=== PATIENT | male | born 1985 | race Caucasian/White ===

== ENCOUNTER 2016-07-04 19:21 | Emergency (ER) ==
[2016-07-04 19:26] VITALS: BP 159/91; TEMP 97.1; BMI 49.4
--- NOTE | 2016-07-04 19:40 | ED.PDOC ---
General ED Provider: Dr. HANY MELARA Chief Complaint: Tooth Problem Stated Complaint: Patient reports dental pain on the left lower molar and left incisor. Took Tylenol but has not helped. Time Seen by Physician: 19:37 Mode of Arrival: Walk-In Information Source: Patient Exam Limitations: No limitations Primary Care Provider: GEOVANY CALDERON Nursing and Triage Documentation Reviewed and Agree: Yes EENT Complaint Exam - Dental/Oral Complaint/Exam Mechanism of Injury: No known trauma Onset/Duration: 2 days Symptoms Are: Still present Timing: Constant Initial Severity: Moderate Current Severity: Severe Location: Left lower molar and left front teeth Character: Reports: Aching, Throbbing Aggravating: Reports: Heat, Cold, Chewing Alleviating: Reports: None Associated Signs and Symptoms: Reports: Foul odor, Foul taste in mouth Related History: Reports: Similar episode Cardiac Risk Factors: Reports: Smoking, Hypertension Dental/Oral Surgical History: Reports: None Tooth Findings: Present: Gross decay, Gross caries, Dental fracture Cervical Lymphadenopathy Present: No Facial Swelling Present: No Bleeding Present: No Oropharynx Findings: Absent: Clots, Active bleeding Septal Hematoma: No Foreign Body Present: No Dysphagia Present: No Drooling Present: No Asymmetrical Tonsillar Swelling Present: No Uvula Midline: No Janey-tonsillar Fluctuence: No Trismus Present: No Palatal Petechiae Present: No Scarlatinaform Rash Present: No Lesions: Absent: Lip, Gums, Tongue, Buccal Mucosa, Pharynx Exanthem: Absent: Lip, Gums, Tongue, Buccal Mucosa, Pharynx Vesicles: Absent: Lip, Gums, Tongue, Buccal Mucosa, Pharynx Teeth Picture: 1 - gross decay 2 - gross decay 3 - gross decay 4 - gross decay Differential Diagnoses: Dental Abcess, Dental Caries, Fractured Tooth Review of Systems - Review Of Systems Constitutional: Reports: No symptoms Eyes: Reports: No symptoms Ears, Nose, Mouth, Throat: Reports: Mouth pain Respiratory: Reports: No symptoms Cardiac: Reports: No symptoms GI: Reports: No symptoms : Reports: No symptoms Musculoskeletal: Reports: No symptoms Skin: Reports: No symptoms Neurological: Reports: No symptoms Endocrine: Reports: No symptoms Hematologic/Lymphatic: Reports: No symptoms All Other Systems: Reviewed and Negative Past Medical History - Past Medical History Previously Healthy: Yes Endocrine: Reports: None Cardiovascular: Reports: Hypertension Respiratory: Reports: None Hematological: Reports: None Gastrointestinal: Reports: GERD Genitourinary: Reports: None Neuro/Psych: Reports: None Musculoskeletal: Reports: None Cancer: Reports: None Other Pertinent Past Medical History: Obesity - Surgical History General Surgical History: Reports: Orthopedic ( 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.), Back Surgery (lower back surgery - fusion 2013,), Unknown - Family History Family History: Reports: Unknown - Social History Smoking Status: Current every day smoker Hx Substance Use: No Alcohol Screening: Occasionally - Immunizations Tetanus Shot up to Date: No Physical Exam - Physical Exam Appearance: Ill-appearing Ill-appearing: Moderate Pain Distress: Moderate Eyes: MAMIE, EOMI, Conjunctiva clear ENT: Ears normal, Nose normal, Oropharynx normal Neck: Supple Respiratory: Airway patent, Breath sounds clear, Breath sounds equal, Respirations nonlabored Cardiovascular: RRR, Pulses normal, No rub, No murmur GI/: Soft, Nontender, No masses, Bowel sounds normal, No Organomegaly Musculoskeletal: Normal strength, ROM intact, No edema, No calf tenderness Skin: Warm, Dry, Normal color Neurological: Sensation intact, Motor intact, Reflexes intact, Cranial nerves intact, Alert, Oriented Psychiatric: Anxious Critical Care Note - Critical Care Note Total Time (mins): 0 Course - Course Vital Signs: Temp Pulse Resp BP Pulse Ox 07/04/16 19:22 97.1 F L 96 H 20 159/91 H 96 Departure - Departure Time of Disposition: 19:46 Disposition: HOME SELF-CARE Discharge Problem: Dental caries into pulp, Toothache Instructions: Dental Caries (ED) Condition: Fair Pt referred to PMD for follow-up: Yes (dentist within a week ) Additional Instructions: Quit drinking any Soda due to acid and sugar that damages teeth. Quit smoking. Follow up with Dentist in one week. Prescriptions: Hydrocodone/Acetaminophen [[place] 5-325 Tablet] 1 tab PO Q6HR PRN #14 tablet PRN Reason: PAIN Amoxicillin/Potassium Clav [Augmentin 500-125 mg Tab] 1 tab PO Q8HR #30 tablet Allergies/Adverse Reactions: Allergies No Known Allergies Allergy (Verified 07/04/16 19:25) Home Medications: Ambulatory Orders Amoxicillin/Potassium Clav [Augmentin 500-125 mg Tab] 1 tab PO Q8HR #30 tablet 07/04/16 Hydrocodone/Acetaminophen [Largo 5-325 Tablet] 1 tab PO Q6HR PRN #14 tablet 09/15 Losartan Potassium [Cozaar] 50 mg PO DAILY 07/04/16 Meloxicam 15 mg PO DAILY 07/04/16 Disposition Discussed With: Patient, Family
== END 2016-07-04 20:00 | disposition home or self-care (01) ==
LOC: ED 19:21
DX: K02.7 Dental root caries (principal); K08.89 Other specified disorders of teeth and supporting structures; S02.5XXA Fracture of tooth (traumatic), initial encounter for closed fracture; I10 Essential (primary) hypertension; F17.210 Nicotine dependence, cigarettes, uncomplicated
CPT/HCPCS: 99283

== ENCOUNTER 2017-03-02 18:39 | Emergency (ER) ==
[2017-03-02 18:44] VITALS: BP 142/84; TEMP 98.6; BMI 50.1
[2017-03-02 19:02] LABS: BASOPHILS # (AUTO) 0.1 K/uL (0-0.2); BASOPHILS % (AUTO) 0.5 % (0.0-3.0); EOSINOPHILS # (AUTO) 0.2 K/ul (0.0-0.7); EOSINOPHILS % (AUTO) 1.7 % (0.0-7.0); HEMATOCRIT 40.3 % (42.0-52.0); HEMOGLOBIN 13.5 g/dl (14.0-18.0); IMMATURE GRANULOCYTE % (AUTO) 0.3 % (0.0-5.0); LYMPHOCYTES # (AUTO) 3.2 K/uL (0.60-3.4); LYMPHOCYTES % (AUTO) 31.4 (10.0-50.0); MEAN CORPUSCULAR HEMOGLOBIN 29.8 pg (27.0-31.0); MEAN CORPUSCULAR HGB CONC 33.5 (31.8-35.4); MONOCYTES # (AUTO) 0.9 K/uL (0.4-2.0); MONOCYTES % (AUTO) 9.3 (0-10); NEUTROPHILS # (AUTO) 5.7 K/ul (2.0-6.9); NEUTROPHILS % (AUTO) 56.8; PLATELET COUNT 177 10^3/uL (140-440); RED BLOOD COUNT 4.53 10^6/ul (4.70-6.10)
[2017-03-02 19:19] LABS: ALBUMIN 3.9 g/dL (3.4-5.0); ALBUMIN/GLOBULIN RATIO 1.26; ANION GAP 17.2; BILIRUBIN,TOTAL 0.5 mg/dL (0.00-1.20); BUN/CREATININE RATIO 8.82; CALCIUM 9.1 mg/dL (8.2-10.2); CREATININE 1.02 mg/dL (0.60-1.10); POTASSIUM 4.2 mmol/L (3.5-5.1)
--- NOTE | 2017-03-02 19:21 | CT ---
Exam: CT soft tissue neck without IV contrast. Clinical indication: Neck pain. TECHNIQUE: Axial unenhanced CT images from the thoracic inlet through the skull base were obtained followed by coronal and sagittal reformats. Findings: The nasal passage, nasopharynx, oropharynx, and the remainder of the visualized airway are unremarka ble, without evidence of asymmetric soft tissue swelling. The bilateral parotid and submandibular glands are within normal limits. There are no enlarged cervical or supraclavicular lymph nodes, by size criteria. There is no obvious soft tissue abnormality within the visualized portions of the neck. The visualized pulmonary parenchyma is unremarkable. The visualized paranasal sinuses and mastoid air cells are clear. The visualized bony structures are unremarkable. Impression: Unremarkable CT soft tissue neck.
--- NOTE | 2017-03-02 19:32 | ED.PDOC ---
General ED Provider: Dr. BERNADETTE KAPADIA-ER Chief Complaint: Neck Pain Non-Injury Stated Complaint: i think i pulled my muscle in my neck--it hurts to move Time Seen by Physician: 18:40 Mode of Arrival: Walk-In Information Source: Patient Exam Limitations: No limitations Primary Care Provider: GEOVANY CALDERON Nursing and Triage Documentation Reviewed and Agree: Yes EENT Complaint Exam - Throat Complaint/Exam Onset/Duration: 2 days Symptoms Are: Still present Timimg: Constant Initial Severity: Mild Current Severity: Mild Alleviating: Reports: None Associated Signs and Symptoms: Denies: Fever, Dysphagia, Drooling, Foreign body sensation, Chills, Cough, Wheezing, Hoarseness, Sinus discomfort, Nasal congestion, Difficulty breathing, Lethargy, Irritability, Decreased activity, Vomiting, Diarrhea, Decreased hearing, Ear drainage Uvula Midline: Yes Janey-tonsillar Fluctuence: No Scarlatinaform Rash Present: No Stridor Present: No Sinus Tenderness Present: No Tonsillar Hypertrophy Present: No Tonsillar Exudate Present: No Janey-tonsillar Swelling Present: No Adenopathy Present: No Splenomegaly Present: No Review of Systems - Review Of Systems Constitutional: Reports: No symptoms Eyes: Reports: No symptoms Ears, Nose, Mouth, Throat: Reports: No symptoms Respiratory: Reports: No symptoms Cardiac: Reports: No symptoms GI: Reports: No symptoms : Reports: No symptoms Musculoskeletal: Reports: Muscle pain, Neck pain Skin: Reports: No symptoms Neurological: Reports: No symptoms Endocrine: Reports: No symptoms Hematologic/Lymphatic: Reports: No symptoms All Other Systems: Reviewed and Negative Past Medical History - Past Medical History Previously Healthy: Yes Endocrine: Reports: None Cardiovascular: Reports: Hypertension Respiratory: Reports: None Hematological: Reports: None Gastrointestinal: Reports: GERD Genitourinary: Reports: None Neuro/Psych: Reports: None Musculoskeletal: Reports: None Cancer: Reports: None Other Pertinent Past Medical History: Obesity - Surgical History General Surgical History: Reports: Orthopedic ( 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.), Back Surgery (lower back surgery - fusion 2013,), Unknown - Family History Family History: Reports: Unknown - Social History Smoking Status: Current every day smoker Hx Substance Use: No Alcohol Screening: Occasionally Lives: With family - Immunizations Tetanus Shot up to Date: Yes Physical Exam - Physical Exam Appearance: Well-appearing, No pain distress, Well-nourished Pain Distress: Mild Eyes: MAMIE ENT: Ears normal, Nose normal, Oropharynx normal Neck: Supple Respiratory: Airway patent, Breath sounds clear, Breath sounds equal, Respirations nonlabored Cardiovascular: RRR GI/: Soft Musculoskeletal: Limited ROM (noted tenderness to the left side of neck) Skin: Warm Neurological: Sensation intact, Motor intact, Reflexes intact, Cranial nerves intact, Alert, Oriented Psychiatric: Affect appropriate Interpretation - Radiology Interpretation Radiology Interpretation By: ED Physician Radiology Results: Negative Exam Interpreted: CT Scan Critical Care Note - Critical Care Note Total Time (mins): 0 Course - Course Hematology/Chemistry: 03/02/17 18:56 03/02/17 18:56 Orders, Labs, Meds: Lab Review 03/02/17 18:56 WBC 10.10 RBC 4.53 L Hgb 13.5 L Hct 40.3 L MCV 89.0 MCH 29.8 MCHC 33.5 RDW Coeff of Hussein 12.6 Plt Count 177 Immature Gran % (Auto) 0.3 Neut % (Auto) 56.8 Lymph % (Auto) 31.4 [place] % (Auto) 9.3 Eos % (Auto) 1.7 Baso % (Auto) 0.5 Immature Gran # (Auto) 0.0 Neut # 5.7 Lymph # 3.2 [place] # 0.9 Eos # 0.2 Baso # 0.1 Sodium 141 Potassium 4.2 Chloride 108 H Carbon Dioxide 20 L Anion Gap 17.2 BUN 9 Creatinine 1.02 Estimated GFR (MDRD) 86.00 BUN/Creatinine Ratio 8.82 Glucose 102 H Calcium 9.1 Total Bilirubin 0.50 AST 21 ALT 25 Alkaline Phosphatase 84 Total Protein 7.0 Albumin 3.9 Globulin 3.1 Albumin/Globulin Ratio 1.26 Orders Category Date Time Status CBC W/ AUTO DIFF Stat LAB 03/02/17 18:56 Completed CMP [COMPREHENSIVE METABOLIC PANEL] Stat LAB 03/02/17 18:56 Completed STREP SCREEN Stat LAB 03/02/17 18:[address] SOFT TISSUE NECK W/O CONTR Stat RADS 03/02/17 18:50 Completed Vital Signs: Temp Pulse Resp BP Pulse Ox 03/02/17 18:39 98.6 F 94 H 18 142/84 H 97 Departure - Departure Time of Disposition: 19:32 Disposition: HOME SELF-CARE Discharge Problem: Strain of sternocleidomastoid muscle Qualifiers: Encounter type: initial encounter Qualifier Code: (S16.1XXA) Strain of muscle, fascia and tendon at neck level, initial encounter Instructions: Muscle Strain (ED) Condition: Good Pt referred to PMD for follow-up: Yes Additional Instructions: toradol 10mg qid prn pain #16--flexeril 5mg tid prn #15--heat--f/u with your doctor next week if not improving Allergies/Adverse Reactions: Allergies No Known Allergies Allergy (Verified 03/02/17 18:44) Home Medications: Ambulatory Orders 1 [No Reported Medications] 03/02/17 Disposition Discussed With: Patient
== END 2017-03-02 19:50 | disposition home or self-care (01) ==
LOC: ED 18:39
DX: S16.1XXA Strain of muscle, fascia and tendon at neck level, initial encounter (principal); F17.210 Nicotine dependence, cigarettes, uncomplicated; X50.1XXA Overexertion from prolonged static or awkward postures, initial encounter
CPT/HCPCS: 36415; 80053; 85025; 87651; 87880; 99283

== ENCOUNTER 2018-02-15 10:02 | Outpatient (CLI) | END 2018-02-15 10:03 | disposition home or self-care (01) | LOC: FCC-LAB 10:02 | PROVIDERS: ATTEND Family Medicine | DX: I10 Essential (primary) hypertension (principal); Z68.43 Body mass index [BMI] 50.0-59.9, adult | CPT/HCPCS: 36415; 80053; 80061 ==

== ENCOUNTER 2018-05-21 11:42 | Outpatient (CLI) | END 2018-05-21 11:43 | disposition home or self-care (01) | LOC: FCC-LAB 11:42 | PROVIDERS: ATTEND Family Medicine | DX: I10 Essential (primary) hypertension (principal) | CPT/HCPCS: 36415; 80053 ==

== ENCOUNTER 2018-08-13 19:32 | Emergency (ER) ==
[2018-08-13 19:37] VITALS: BP 149/88; TEMP 97.3; BMI 45.0
--- NOTE | 2018-08-13 19:51 | ED.PDOC ---
General ED Provider: Dr. HANY MELARA Chief Complaint: Sore Throat Stated Complaint: Patient is 32 year old 1 ppd smoker who comes to the Er with complains of cough with white/green sputum, sore throat, congestion and hard to take a deep breath Time Seen by Physician: 19:49 Mode of Arrival: Walk-In Information Source: Patient Primary Care Provider: JERRY AYALA Nursing and Triage Documentation Reviewed and Agree: Yes Does patient meet sepsis criteria?: No System Inflammatory Response Syndrome: Not Applicable Sepsis Protocol: For patient's 13 years and over: Temp is 96.8 and below OR 101 and greater Pulse >90 BPM Resp >20/minute Acutely Altered Mental Status Are patient's symptoms suggestive of a new infection, such as: -Pneumonia -Skin, Soft Tissue -Endocarditis -UTI -Bone, Joint Infection -Implantable Device -Acute Abdominal Infection -Wound Infection -Meningitis -Blood Stream Catheter Infection -Unknown EENT Complaint Exam - Throat Complaint/Exam Onset/Duration: 2 Symptoms Are: Still present Timimg: Constant Initial Severity: Mild Current Severity: Mild Aggravating: Reports: Eating Associated Signs and Symptoms: Reports: Cough, Wheezing (hard to breath ), Nasal congestion. Denies: Fever, Dysphagia, Drooling, Foreign body sensation, Chills, Hoarseness, Sinus discomfort, Difficulty breathing, Lethargy, Irritability, Decreased activity, Vomiting, Diarrhea, Decreased hearing, Ear drainage Uvula Midline: No Janey-tonsillar Fluctuence: No Scarlatinaform Rash Present: No Stridor Present: No Sinus Tenderness Present: No Tonsillar Hypertrophy Present: No Tonsillar Exudate Present: No Janey-tonsillar Swelling Present: No Adenopathy Present: No Splenomegaly Present: No Differential Diagnoses: Influenza, Pharyngitis, Tonsillitis, URI Review of Systems - Review Of Systems Constitutional: Reports: No symptoms Eyes: Reports: No symptoms Ears, Nose, Mouth, Throat: Reports: Nose discharge, Throat pain Respiratory: Reports: Cough Cardiac: Reports: No symptoms GI: Reports: No symptoms : Reports: No symptoms Musculoskeletal: Reports: No symptoms Skin: Reports: No symptoms Neurological: Reports: No symptoms Endocrine: Reports: No symptoms Hematologic/Lymphatic: Reports: No symptoms All Other Systems: Reviewed and Negative Past Medical History - Past Medical History Previously Healthy: Yes Endocrine: Reports: None Cardiovascular: Reports: Hypertension Respiratory: Reports: None Hematological: Reports: None Gastrointestinal: Reports: GERD Genitourinary: Reports: None Neuro/Psych: Reports: None Musculoskeletal: Reports: None Cancer: Reports: None Other Pertinent Past Medical History: Obesity - Surgical History General Surgical History: Reports: Orthopedic ( 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.), Back Surgery (lower back surgery - fusion 2013,), Unknown - Family History Family History: Reports: Unknown - Social History Smoking Status: Current every day smoker, Heavy tobacco smoker Hx Substance Use: No Alcohol Screening: Occasionally Physical Exam - Physical Exam Appearance: Obese Ill-appearing: Mild Pain Distress: Moderate Eyes: MAMIE, EOMI, Conjunctiva clear ENT: Erythema Neck: Supple Respiratory: Breath sounds diminished Cardiovascular: RRR, Pulses normal, No rub, No murmur Skin: Warm, Dry Neurological: Alert, Oriented Psychiatric: Affect appropriate Interpretation - Radiology Interpretation Radiology Interpretation By: Radiologist Radiology Results: Negative Exam Interpreted: CXR Critical Care Note - Critical Care Note Total Time (mins): 0 Course - Course Orders, Labs, Meds: Orders Category Date Time Status FLU A/B MOLECULAR Stat LAB 08/13/18 19:46 Received RAPID STREP SCREEN [MOLECULAR GROUP A STREP] Stat LAB 08/13/18 19:46 Received Vital Signs: Temp Pulse Resp BP Pulse Ox 08/13/18 19:33 97.3 F L 84 20 149/88 H 95 Departure - Departure Time of Disposition: 21:18 Disposition: HOME SELF-CARE Discharge Problem: Bronchitis Instructions: Acute Bronchitis (ED) Condition: Stable Pt referred to PMD for follow-up: Yes IPMP verified?: No Additional Instructions: Take Medications as prescribed Prescriptions: Albuterol Sulfate [Proair Hfa] 2 puff IH Q6H PRN #1 puff PRN Reason: wheezing Prednisone 20 mg PO DAILYWM #5 tablet Allergies/Adverse Reactions: Allergies No Known Allergies Allergy (Verified 08/13/18 19:36) Home Medications: Ambulatory Orders Albuterol Sulfate [Proair Hfa] 2 puff IH Q6H PRN #1 puff 08/13/18 Prednisone 20 mg PO DAILYWM #5 tablet 08/13/18 Disposition Discussed With: Patient, Family
[2018-08-13] MEDS ORDERED: DUONEB NEB STA (19:54)
--- NOTE | 2018-08-13 20:54 | DI ---
EXAM: PA and lateral views of the chest. HISTORY: Cough. FINDINGS: The bones are unremarkable. The cardiac silhouette and pulmonary vasculature are within no rmal limits. The costophrenic angles are clear. There are calcified granulomas. No infiltrate or c onsolidation. Impression: No acute cardiopulmonary disease.
== END 2018-08-13 21:22 | disposition home or self-care (01) ==
LOC: ED 19:32
DX: J40 Bronchitis, not specified as acute or chronic (principal); F17.210 Nicotine dependence, cigarettes, uncomplicated; I10 Essential (primary) hypertension
CPT/HCPCS: 87502; 87651; 94640; 99283